=== PATIENT | male | born 1955 | race Caucasian/White ===

== ENCOUNTER → 2017-05-07 19:12 | Outpatient (CLI) | payer SELFPAY ==
[2017-05-07 19:27] LABS: APPEARANCE CLEAR (CLEAR); BILIRUBIN 1+ (NEGATIVE); COLOR DK YELLOW (YELLOW); GLUCOSE NEGATIVE (NEGATIVE); KETONE NEGATIVE (NEGATIVE); NITRITE NEGATIVE (NEGATIVE); PROTEIN TRACE mg/dL (NEGATIVE)
[2017-05-07 19:29] LABS: WHITE CELLS - URINE 0-5 /hpf (0-5)
[2017-05-07 19:30] LABS: BACTERIA MODERATE /hpf (NONE SEEN)
== END | disposition home or self-care (01) ==
LOC: D.LABREF 19:12
PROVIDERS: Family Medicine
DX: N39.0 Urinary tract infection, site not specified (principal)